=== PATIENT | male | born 1960 | race Caucasian/White ===

== ENCOUNTER 2017-04-07 23:36 | Emergency (ER) | payer MEDICAID ==
[~2017-04-07] VITALS: Ht 167.6 cm; Wt 99.8 kg
[~2017-04-07 23:36] MED LIST: ENAL20TA PO; GLIM1TAB PO; LOSA100T11 PO; MORP30TA2 PO; NIFE-2 PO
[2017-04-07 23:40] VITALS: BP_SYST 193
[2017-04-08] MEDS ORDERED: MORPHINE SULFATE 10 MG/ML VIAL IM ONE
[2017-04-08] MEDS ORDERED: HYDROmorphone 1 MG INJ. 1 MG/ML AMPUL IM ONE (02:15)
[2017-04-08 03:13] VITALS: BP_SYST 185
== END 2017-04-08 03:13 | disposition home or self-care (01) ==
LOC: SED 23:36
DX: M10.9 Gout, unspecified (principal); M79.672 Pain in left foot; J44.9 Chronic obstructive pulmonary disease, unspecified; E11.9 Type 2 diabetes mellitus without complications; I10 Essential (primary) hypertension; Z96.641 Presence of right artificial hip joint; Z86.19 Personal history of other infectious and parasitic diseases; Z91.011 Allergy to milk products
CPT/HCPCS: 96372; 99284; J1170; J2270

== ENCOUNTER 2018-07-29 16:32 | Emergency (ER) | payer MEDICAID ==
[~2018-07-29] VITALS: Ht 167.6 cm; Wt 108.9 kg
[~2018-07-29 16:32] MED LIST changes: +ALBMDI INH; +AZIT500T2 PO; +CAT.2 PO; -LOSA100T11 PO; +METO-442 PO; -MORP30TA2 PO
[2018-07-29 16:35] VITALS: BP_SYST 232
--- NOTE | 2018-07-29 16:40 | NUR ---
Patient to ER bed 3 to gown for evaluation. Side rails up.
--- NOTE | 2018-07-29 16:42 | NUR ---
Patient arrived via ACLS for c/c of ALOC. Patient unable to verbalize history, medications. Per EMS, patient was confused and alerted, was not making sense when speaking. Patient arrived AAOx2, patient knows he is in the hospital and knows his name. Patient hypertensive en route and upon arrival 232/112. Patient has periods of tearfulness. He keep stating, "I feel fine, I just want to go home!"
[2018-07-29 17:01] LABS: BASOPHILS % (AUTO) 0.6 % (0.0-2.0); EOSINOPHILS # (AUTO) 0.1 K/uL (0.0-0.4); EOSINOPHILS % (AUTO) 2.2 % (0.0-4.0); HEMATOCRIT 36.7 % (36-54); HEMOGLOBIN 11.9 g/dL (14.0-18.0); LYMPHOCYTES # (AUTO) 1.1 K/uL (1.0-5.5); LYMPHOCYTES % (AUTO) 16.6 % (20.5-51.5); MEAN CORPUSCULAR HEMOGLOBIN 29 pg (27-31); MEAN CORPUSCULAR HGB CONC 33 % (32-36); MEAN CORPUSCULAR VOLUME 90 fL (79.0-98.0); MONOCYTES # (AUTO) 0.4 K/uL (0.0-1.0); MONOCYTES % (AUTO) 5.9 % (1.7-9.3); NEUTROPHILS # (AUTO) 4.9 K/uL (1.8-7.7); NEUTROPHILS % (AUTO) 74.7 % (40.0-70.0); PLATELET COUNT (AUTO) 143 K/uL (130-430); RED BLOOD CELL COUNT(AUTO) 4.08 MIL/uL (4.2-6.2); RED CELL DISTRIBUTION WIDTH 14.4 % (9.0-15.0); WHITE BLOOD COUNT (AUTO) 6.5 K/uL (4.8-10.8)
[2018-07-29 17:22] LABS: CALCIUM 9.5 mg/dL (8.4-11.0); CREATININE 4.96 mg/dL (0.55-1.30); POTASSIUM 5.4 mmol/L (3.5-5.1)
--- NOTE | 2018-07-29 17:22 | NUR ---
Patient taken to CT scan via gurney. Patient hypertensive at 225/129, MD aware.
[2018-07-29 17:27] LABS: ALBUMIN 4.1 g/dL (3.4-4.8); TOTAL BILIRUBIN 0.6 mg/dL (0.0-1.0)
--- NOTE | 2018-07-29 17:28 | NUR ---
Patient arrived back from CT scan.
[2018-07-29 17:30] LABS: INR 1.1 (0.80-1.20); PROTHROMBIN TIME 10.7 SECS (9.5-12.5)
--- NOTE | 2018-07-29 17:32 | NUR ---
Received results from Julio Cesar in lab. Patient troponin, 0.076, MD informed.
[2018-07-29] MEDS ORDERED: SODIUM POLYSTYRENE SULFONATE 15 GM/60 ML UDBTL PO ONE (18:00)
--- NOTE | 2018-07-29 18:04 | NUR ---
Patient refusing IV access. aware.
--- NOTE | 2018-07-29 18:09 | NUR ---
Pt refuses Kayexalate. Dr. Do notified.
--- NOTE | 2018-07-29 18:10 | NUR ---
Dr. Do at bedside discussing results of tests with patient and his at bedside. Patient made aware of risks of leaving, as patient was adament about going home, even as far as and cardiac arrest. Patient verbalized understanding, and wants to sign AMA.
[2018-07-29] MEDS ORDERED: SODIUM POLYSTYRENE SULFONATE 15 GM/60 ML UDBTL ONE (18:13)
--- NOTE | 2018-07-29 18:25 | NUR ---
Patient does not wish to proceed with medical care recommended by Dr. Do. Patient given information related to possible complications, up to and including , which could occur as a result of leaving hospital at this time. Patient verbalizes understanding of risks involved leaving against medical advice. Patient has signed AMA form.
== END 2018-07-29 18:25 | disposition left against medical advice (07) ==
LOC: SED 16:32
DX: N28.9 Disorder of kidney and ureter, unspecified (principal); E87.5 Hyperkalemia; I24.9 Acute ischemic heart disease, unspecified; R79.89 Other specified abnormal findings of blood chemistry; J45.909 Unspecified asthma, uncomplicated; E11.9 Type 2 diabetes mellitus without complications; I10 Essential (primary) hypertension; Z86.79 Personal history of other diseases of the circulatory system; Z86.19 Personal history of other infectious and parasitic diseases; Z91.011 Allergy to milk products; Z79.899 Other long term (current) drug therapy
CPT/HCPCS: 36415; 70450-TC; 71045; 80053; 82550-TC; 83880; 84484; 85025; 85610-TC; 85730-TC; 93005; 99285

== ENCOUNTER 2018-10-07 23:04 | Inpatient (IN) | payer MEDICAID ==
[~2018-10-07] VITALS: Ht 167.6 cm; Wt 93.0 kg
[2018-10-07 23:08] VITALS: BP_SYST 227
[2018-10-08] VITALS (23 sets, daily range): BP systolic 135–195
[2018-10-08] MEDS ORDERED: cloNIDine HCL 0.1 MG TABLET PO ONE (00:15)
[2018-10-08 00:32] LABS: BASOPHILS % (AUTO) 0.5 % (0.0-2.0); EOSINOPHILS # (AUTO) 0.2 K/uL (0.0-0.4); EOSINOPHILS % (AUTO) 3.4 % (0.0-4.0); HEMATOCRIT 35.3 % (36-54); HEMOGLOBIN 11.9 g/dL (14.0-18.0); LYMPHOCYTES % (AUTO) 14.1 % (20.5-51.5); MEAN CORPUSCULAR HEMOGLOBIN 29 pg (27-31); MEAN CORPUSCULAR HGB CONC 34 % (32-36); MEAN CORPUSCULAR VOLUME 87 fL (79.0-98.0); MONOCYTES # (AUTO) 0.3 K/uL (0.0-1.0); MONOCYTES % (AUTO) 4.8 % (1.7-9.3); NEUTROPHILS # (AUTO) 5.6 K/uL (1.8-7.7); NEUTROPHILS % (AUTO) 77.2 % (40.0-70.0); PLATELET COUNT (AUTO) 139 K/uL (130-430); RED BLOOD CELL COUNT(AUTO) 4.05 MIL/uL (4.2-6.2); WHITE BLOOD COUNT (AUTO) 7.1 K/uL (4.8-10.8)
[2018-10-08] MEDS ORDERED: hydrALAZINE HCL 20 MG/ML VIAL IVP ONE (00:45)
[2018-10-08 00:48] LABS: PROTHROMBIN TIME 10.1 SECS (9.5-12.5)
[2018-10-08] MEDS ORDERED: NITROGLYCERIN 250 ML IV ONE (01:15)
[2018-10-08 01:47] LABS: CALCIUM 8.6 mg/dL (8.4-11.0); CREATININE 4.76 mg/dL (0.55-1.30); POTASSIUM 4.5 mmol/L (3.5-5.1)
[2018-10-08 01:52] LABS: ALBUMIN 3.4 g/dL (3.4-4.8); TOTAL BILIRUBIN 0.5 mg/dL (0.0-1.0)
[2018-10-08 01:56] LABS: BILIRUBIN,URINE NEGATIVE (NEGATIVE); CLARITY/URINE CLEAR (CLEAR); COLOR,URINE YELLOW (YELLOW); GLUCOSE,URINE NEGATIVE (NEGATIVE); KETONES,URINE NEGATIVE (NEGATIVE); LEUKOCYTE ESTERASE ,URINE NEGATIVE (NEGATIVE); NITRITE, URINE NEGATIVE (NEGATIVE); PH,URINE 6.5 (5.0-8.0); PROTEIN URINE 3+ (NEGATIVE); UROBILINOGEN,URINE 0.2 (0.2-1.0)
[2018-10-08 01:58] LABS: BLOOD, URINE TRACE (NEGATIVE)
[2018-10-08 02:08] LABS: BACTERIA,URINE RARE /HPF (None Seen); WBC,URINE 0-3 /HPF (0-3)
[2018-10-08] MEDS ORDERED: amLODIPine BESYLATE 10 MG TABLET PO ONE (02:15)
[2018-10-08] MEDS: amLODIPine BESYLATE 10 MG TABLET PO SCH (09:17)
[2018-10-08] MEDS ORDERED: METOPROLOL TARTRATE 50 MG TABLET PO ONE (11:00)
[2018-10-08] MEDS ORDERED: ENALAPRIL MALEATE 10 MG TABLET (VASOTEC) PO ONE (11:00)
[2018-10-08] MEDS ORDERED: FUROSEMIDE 40 MG/4 ML VIAL IVP ONE (11:15)
[2018-10-08 14:03] LABS: BILIRUBIN,URINE NEGATIVE (NEGATIVE); CLARITY/URINE CLEAR (CLEAR); COLOR,URINE YELLOW (YELLOW); GLUCOSE,URINE TRACE (NEGATIVE); KETONES,URINE NEGATIVE (NEGATIVE); LEUKOCYTE ESTERASE ,URINE NEGATIVE (NEGATIVE); NITRITE, URINE NEGATIVE (NEGATIVE); PROTEIN URINE 3+ (NEGATIVE); UROBILINOGEN,URINE 0.2 (0.2-1.0)
[2018-10-08 14:06] LABS: BLOOD, URINE TRACE (NEGATIVE)
[2018-10-08 14:22] LABS: BARBITURATE, URINE NEGATIVE (NEG <=200); BENZODIAZEPINE, URINE NEGATIVE (NEG <=150); CANNABINOID, URINE POSITIVE (NEG <=50); COCAINE, URINE NEGATIVE (NEG <=150); METHAMPHETAMINES SCREEN,URINE POSITIVE (NEG <=500); OPIATE, URINE NEGATIVE (NEG <=100); PHENCYCLIDINE SCREEN,URINE NEGATIVE (NEG <=25); UR TRICYCLIC ANTIDEPRESSANTS NEGATIVE (NEG <=300); URINE AMPHETAMINE POSITIVE (NEG <=500); URINE METHADONE NEGATIVE (NEG <=200); URINE OXYCODONE SCREEN NEGATIVE (NEG <=100); URINE PROPOXYPHENE SCREEN NEGATIVE (NEG <=300)
[2018-10-08] MEDS ORDERED: NITROGLYCERIN 250 ML IV PRN (15:00)
[2018-10-08] MEDS ORDERED: ATORVASTATIN 20 MG TABLET PO ONE (15:15)
[2018-10-08] MEDS ORDERED: ASPIRIN 81 MG TAB.CHEW PO ONE (15:15)
[2018-10-08 17:41] LABS: BACTERIA,URINE FEW /HPF (None Seen); FINE GRANULAR CASTS,URINE 0-10 /LPF (None Seen); MUCUS,URINE 1+ /LPF (None Seen); RBC,URINE 0-3 /HPF (0-3); WBC,URINE 0-3 /HPF (0-3)
[2018-10-08] MEDS: cloNIDine HCL 0.1 MG TABLET PO PRN (18:43)
[2018-10-08 19:34] LABS: URINE SODIUM, RANDOM 55 mmol/L (40-220)
[2018-10-08] MEDS: ENALAPRIL MALEATE 10 MG TABLET (VASOTEC) PO SCH (21:58)
[2018-10-08] MEDS: cloNIDine HCL 0.2 MG TABLET PO SCH (21:59)
[2018-10-08] MEDS: METOPROLOL TARTRATE 50 MG TABLET PO SCH (21:59)
[2018-10-09] VITALS (24 sets, daily range): BP systolic 122–171
[2018-10-09] MEDS: cloNIDine HCL 0.1 MG TABLET PO PRN ×2 (03:20→17:33)
[2018-10-09] MEDS: cloNIDine HCL 0.2 MG TABLET PO SCH ×2 (08:24→21:17)
[2018-10-09] MEDS: ASPIRIN 81 MG TAB.CHEW PO SCH (08:25)
[2018-10-09] MEDS: METOPROLOL TARTRATE 50 MG TABLET PO SCH ×2 (08:25→21:16)
[2018-10-09] MEDS: amLODIPine BESYLATE 10 MG TABLET PO SCH (08:25)
[2018-10-09] MEDS: ATORVASTATIN 20 MG TABLET PO SCH (08:26)
[2018-10-09] MEDS: ENALAPRIL MALEATE 10 MG TABLET (VASOTEC) PO SCH ×2 (08:26→21:16)
[2018-10-09] MEDS: FUROSEMIDE 40 MG/4 ML VIAL IVP SCH (08:27)
[2018-10-09 10:35] LABS: BASOPHILS # (AUTO) 0.1 K/uL (0.0-0.2); BASOPHILS % (AUTO) 0.6 % (0.0-2.0); EOSINOPHILS # (AUTO) 0.2 K/uL (0.0-0.4); EOSINOPHILS % (AUTO) 2.5 % (0.0-4.0); HEMATOCRIT 30.5 % (36-54); HEMOGLOBIN 10.1 g/dL (14.0-18.0); LYMPHOCYTES # (AUTO) 1.4 K/uL (1.0-5.5); LYMPHOCYTES % (AUTO) 15.4 % (20.5-51.5); MEAN CORPUSCULAR HEMOGLOBIN 29 pg (27-31); MEAN CORPUSCULAR HGB CONC 33 % (32-36); MEAN CORPUSCULAR VOLUME 88 fL (79.0-98.0); MONOCYTES # (AUTO) 0.7 K/uL (0.0-1.0); MONOCYTES % (AUTO) 7.9 % (1.7-9.3); NEUTROPHILS # (AUTO) 6.4 K/uL (1.8-7.7); NEUTROPHILS % (AUTO) 73.6 % (40.0-70.0); PLATELET COUNT (AUTO) 153 K/uL (130-430); RED BLOOD CELL COUNT(AUTO) 3.45 MIL/uL (4.2-6.2); RED CELL DISTRIBUTION WIDTH 12.9 % (9.0-15.0); WHITE BLOOD COUNT (AUTO) 8.8 K/uL (4.8-10.8)
[2018-10-09 10:41] LABS: CALCIUM 8.7 mg/dL (8.4-11.0); CREATININE 5.31 mg/dL (0.55-1.30); POTASSIUM 4.4 mmol/L (3.5-5.1)
[2018-10-09 10:45] LABS: ALBUMIN 2.9 g/dL (3.4-4.8); TOTAL BILIRUBIN 0.5 mg/dL (0.0-1.0)
[2018-10-09] MEDS ORDERED: hydrALAZINE HCL 25 MG TABLET PO ONE (11:45)
[2018-10-09] MEDS: INSULIN REGULAR, HUMAN 100 UNITS/ML, 10 ML VIAL (novoLIN R) SUBCUT PRN (12:21)
[2018-10-09] MEDS ORDERED: HEPARIN SODIUM,PORCINE 5000 UNITS/ML VIAL ONE (20:20)
[2018-10-09 20:27] LABS: CALCIUM 8.3 mg/dL (8.4-11.0); PHOSPHORUS 4.5 mg/dL (2.7-4.5)
[2018-10-09] MEDS ORDERED: HEPARIN SODIUM, PORCINE 10,000 UNITS/ 10 ML VIAL MC ONE (21:00)
[2018-10-09] MEDS: hydrALAZINE HCL 25 MG TABLET PO SCH (21:17)
[2018-10-09] MEDS: TEMAZEPAM 15 MG CAPSULE PO PRN (22:26)
[2018-10-10] VITALS (17 sets, daily range): BP systolic 131–178
[2018-10-10] MEDS: ENALAPRIL MALEATE 10 MG TABLET (VASOTEC) PO SCH ×3 (09:00→20:45)
[2018-10-10] MEDS: hydrALAZINE HCL 25 MG TABLET PO SCH ×3 (09:00→20:43)
[2018-10-10] MEDS: cloNIDine HCL 0.2 MG TABLET PO SCH ×3 (09:00→20:44)
[2018-10-10] MEDS: METOPROLOL TARTRATE 50 MG TABLET PO SCH ×3 (09:00→20:44)
[2018-10-10] MEDS: amLODIPine BESYLATE 10 MG TABLET PO SCH ×2 (09:00→09:07)
[2018-10-10] MEDS: FUROSEMIDE 40 MG/4 ML VIAL IVP SCH (09:05)
[2018-10-10] MEDS: ATORVASTATIN 20 MG TABLET PO SCH (09:08)
[2018-10-10] MEDS: ASPIRIN 81 MG TAB.CHEW PO SCH (09:08)
[2018-10-10] MEDS: INSULIN REGULAR, HUMAN 100 UNITS/ML, 10 ML VIAL (novoLIN R) SUBCUT PRN ×2 (11:38→17:43)
[2018-10-10] MEDS: cloNIDine HCL 0.1 MG TABLET PO PRN (12:52)
[2018-10-10] MEDS ORDERED: NEPHROVITE, (FOLIC ACID/VITAMIN B COMP W-C 1 TAB) PO ONE (17:30)
[2018-10-10] MEDS: TEMAZEPAM 15 MG CAPSULE PO PRN (22:36)
[2018-10-11] VITALS (7 sets, daily range): BP systolic 105–169
[2018-10-11 07:30] LABS: CALCIUM 8.6 mg/dL (8.4-11.0); CREATININE 4.82 mg/dL (0.55-1.30); POTASSIUM 4.3 mmol/L (3.5-5.1)
[2018-10-11] MEDS: NEPHROVITE, (FOLIC ACID/VITAMIN B COMP W-C 1 TAB) PO SCH (08:21)
[2018-10-11] MEDS: ASPIRIN 81 MG TAB.CHEW PO SCH (08:21)
[2018-10-11] MEDS: ATORVASTATIN 20 MG TABLET PO SCH (08:21)
[2018-10-11] MEDS: FUROSEMIDE 40 MG/4 ML VIAL IVP SCH (08:21)
[2018-10-11] MEDS: cloNIDine HCL 0.2 MG TABLET PO SCH ×3 (08:22→20:25)
[2018-10-11] MEDS: hydrALAZINE HCL 25 MG TABLET PO SCH ×2 (08:33→20:25)
[2018-10-11] MEDS: amLODIPine BESYLATE 10 MG TABLET PO SCH (08:34)
[2018-10-11] MEDS: ENALAPRIL MALEATE 10 MG TABLET (VASOTEC) PO SCH ×2 (08:34→20:26)
[2018-10-11] MEDS: METOPROLOL TARTRATE 50 MG TABLET PO SCH ×2 (08:34→20:24)
[2018-10-11 13:10] LABS: HEPATITIS B CORE AB, IgM Negative (Negative); HEPATITIS B SURFACE AG Negative (Negative)
[2018-10-11] MEDS ORDERED: HEPARIN SODIUM, PORCINE 10,000 UNITS/ 10 ML VIAL MC ONE (14:00)
[2018-10-11] MEDS ORDERED: ONDANSETRON HCL 4 MG/2 ML VIAL IVP PRN (16:15)
[2018-10-11] MEDS: HYDROcodone/ACETAMIN 5-325 MG TAB (NORCO/ VICODIN) PO PRN ×2 (16:26→22:40)
[2018-10-11] MEDS: TEMAZEPAM 15 MG CAPSULE PO PRN (21:47)
[2018-10-12] MEDS: HYDROcodone/ACETAMIN 5-325 MG TAB (NORCO/ VICODIN) PO PRN (04:29)
[2018-10-12 07:52] VITALS: BP_SYST 109
[2018-10-12 08:00] VITALS: BP_SYST 109
[2018-10-12] MEDS: ENALAPRIL MALEATE 10 MG TABLET (VASOTEC) PO SCH (08:46)
[2018-10-12] MEDS: cloNIDine HCL 0.2 MG TABLET PO SCH (08:46)
[2018-10-12] MEDS: ASPIRIN 81 MG TAB.CHEW PO SCH (08:56)
[2018-10-12] MEDS: hydrALAZINE HCL 25 MG TABLET PO SCH (08:56)
[2018-10-12] MEDS: FUROSEMIDE 40 MG/4 ML VIAL IVP SCH (08:56)
[2018-10-12] MEDS: NEPHROVITE, (FOLIC ACID/VITAMIN B COMP W-C 1 TAB) PO SCH (08:56)
[2018-10-12] MEDS: ATORVASTATIN 20 MG TABLET PO SCH (08:56)
[2018-10-12] MEDS: METOPROLOL TARTRATE 50 MG TABLET PO SCH (08:56)
[2018-10-12] MEDS: amLODIPine BESYLATE 10 MG TABLET PO SCH (08:56)
[2018-10-12 09:41] VITALS: BP_SYST 109
[2018-10-12 11:05] LABS: HEPATITIS A AB, IgM Negative (Negative)
[2018-10-12 11:07] LABS: HEPATITIS C VIRUS AB >11.0 s/co (0.0-0.7)
== END 2018-10-12 10:44 | disposition left against medical advice (07) | DRG 194 ==
LOC: SED 23:04 → SIC 10-08 02:33 → STU 10-10 14:45
PROVIDERS: ADMIT Internal Medicine Hospice and Palliative Medicine; ATTEND Internal Medicine Hospice and Palliative Medicine
PROC: 02HV33Z Insertion of Infusion Device into Superior Vena Cava, Percutaneous Approach (ICD-10-PCS; principal; 2018-10-09)
PROC: 5A1D70Z Performance of Urinary Filtration, Intermittent, Less than 6 Hours Per Day (ICD-10-PCS; 2018-10-10)
PROC: 5A1D70Z Performance of Urinary Filtration, Intermittent, Less than 6 Hours Per Day (ICD-10-PCS; 2018-10-11)
DX: I13.2 Hypertensive heart and chronic kidney disease with heart failure and with stage 5 chronic kidney disease, or end stage renal disease (principal); N17.9 Acute kidney failure, unspecified; E11.21 Type 2 diabetes mellitus with diabetic nephropathy; E66.01 Morbid (severe) obesity due to excess calories; M86.9 Osteomyelitis, unspecified; N18.6 End stage renal disease; I24.8 Other forms of acute ischemic heart disease; I16.1 Hypertensive emergency; I50.9 Heart failure, unspecified; E11.22 Type 2 diabetes mellitus with diabetic chronic kidney disease; E78.5 Hyperlipidemia, unspecified; F15.10 Other stimulant abuse, uncomplicated; J45.909 Unspecified asthma, uncomplicated; Z96.649 Presence of unspecified artificial hip joint; B19.20 Unspecified viral hepatitis C without hepatic coma; D63.1 Anemia in chronic kidney disease; Z91.048 Other nonmedicinal substance allergy status; Z91.14 Patient's other noncompliance with medication regimen; Z79.899 Other long term (current) drug therapy; Z68.33 Body mass index [BMI] 33.0-33.9, adult
CPT/HCPCS: 36415; 36600; 71045; 71250-TC; 80048; 80053; 80307; 81000-TC; 82310-TC; 82570-TC; 82803-TC; 82962; 83605; 83880; 83970; 84100-TC; 84302-TC; 84484; 85025; 85610-TC; 85730-TC; 86705; 86709; 86803; 87040-TC; 87081; 87086; 87340; 90935; 90937; 93005; 93306; 96374; 99285; C1751; G0378; J0360; J1644; J1815; J1940; J2405; J3490; J7030

== ENCOUNTER 2018-10-12 16:13 | Emergency (ER) | payer MEDICAID ==
[~2018-10-12] VITALS: Ht 167.6 cm; Wt 90.7 kg
[2018-10-12 16:24] VITALS: BP_SYST 163
[2018-10-12 16:53] VITALS: BP_SYST 163
== END 2018-10-12 16:53 | disposition home or self-care (01) ==
LOC: SED 16:13
DX: L76.22 Postprocedural hemorrhage of skin and subcutaneous tissue following other procedure (principal); J45.909 Unspecified asthma, uncomplicated; E11.9 Type 2 diabetes mellitus without complications; I10 Essential (primary) hypertension; Z86.79 Personal history of other diseases of the circulatory system; Z86.19 Personal history of other infectious and parasitic diseases; Z91.011 Allergy to milk products; Z79.899 Other long term (current) drug therapy
CPT/HCPCS: 99282

== ENCOUNTER 2018-10-26 09:44 | Inpatient (IN) | payer MEDICAID ==
[~2018-10-26] VITALS: Ht 167.6 cm; Wt 91.6 kg
[2018-10-26 09:44] VITALS: BP_SYST 127
[~2018-10-26 09:44] MED LIST changes: -AZIT500T2 PO; -GLIM1TAB PO; -NIFE-2 PO
[2018-10-26 11:29] LABS: BASOPHILS % (AUTO) 0.2 % (0.0-2.0); HEMATOCRIT 33.8 % (36-54); HEMOGLOBIN 11.3 g/dL (14.0-18.0); LYMPHOCYTES # (AUTO) 0.7 K/uL (1.0-5.5); LYMPHOCYTES % (AUTO) 3.8 % (20.5-51.5); MEAN CORPUSCULAR HEMOGLOBIN 29 pg (27-31); MEAN CORPUSCULAR HGB CONC 34 % (32-36); MEAN CORPUSCULAR VOLUME 87 fL (79.0-98.0); MONOCYTES # (AUTO) 1.1 K/uL (0.0-1.0); MONOCYTES % (AUTO) 6.4 % (1.7-9.3); NEUTROPHILS # (AUTO) 15.4 K/uL (1.8-7.7); NEUTROPHILS % (AUTO) 89.6 % (40.0-70.0); PLATELET COUNT (AUTO) 113 K/uL (130-430); RED BLOOD CELL COUNT(AUTO) 3.87 MIL/uL (4.2-6.2); RED CELL DISTRIBUTION WIDTH 12.5 % (9.0-15.0); WHITE BLOOD COUNT (AUTO) 17.2 K/uL (4.8-10.8)
[2018-10-26 11:35] LABS: INR 1.1 (0.80-1.20); PROTHROMBIN TIME 10.9 SECS (9.5-12.5)
[2018-10-26 11:40] LABS: ALBUMIN 3.1 g/dL (3.4-4.8); CALCIUM 8.6 mg/dL (8.4-11.0); POTASSIUM 5.2 mmol/L (3.5-5.1)
[2018-10-26 11:54] LABS: CREATININE 9.53 mg/dL (0.55-1.30)
[2018-10-26 12:04] LABS: TOTAL BILIRUBIN 0.6 mg/dL (0.0-1.0)
[2018-10-26] MEDS ORDERED: HYDR-4038 PO (13:09)
[2018-10-26] MEDS ORDERED: CALC667T5 PO (13:09)
[2018-10-26] MEDS ORDERED: METO-442 PO (13:09)
[2018-10-26] MEDS ORDERED: LIP40 PO (13:09)
[2018-10-26] MEDS ORDERED: NOR10 PO (13:09)
[2018-10-26] MEDS ORDERED: ASPI-1153 PO (13:09)
[2018-10-26] MEDS ORDERED: CHOL500037 PO (13:09)
[2018-10-26] MEDS ORDERED: CAT.2 PO (13:09)
[2018-10-26 13:10] LABS: BILIRUBIN,URINE NEGATIVE (NEGATIVE); BLOOD, URINE NEGATIVE (NEGATIVE); CLARITY/URINE CLEAR (CLEAR); COLOR,URINE YELLOW (YELLOW); GLUCOSE,URINE NEGATIVE (NEGATIVE); KETONES,URINE NEGATIVE (NEGATIVE); LEUKOCYTE ESTERASE ,URINE NEGATIVE (NEGATIVE); NITRITE, URINE NEGATIVE (NEGATIVE); PH,URINE 5.5 (5.0-8.0); PROTEIN URINE 2+ (NEGATIVE); UROBILINOGEN,URINE 0.2 (0.2-1.0)
[2018-10-26] MEDS ORDERED: PIPERACILLIN/TAZO 3.375 GM in NS 50 ML IV ONE (13:15)
[2018-10-26] MEDS ORDERED: SODIUM POLYSTYRENE SULFONATE 15 GM/60 ML UDBTL PO ONE (13:15)
[2018-10-26 13:23] LABS: RBC,URINE 0-3 /HPF (0-3)
[2018-10-26 13:24] LABS: BACTERIA,URINE FEW /HPF (None Seen); MUCUS,URINE None Seen /LPF (None Seen); WBC,URINE 0-3 /HPF (0-3)
[2018-10-26] MEDS ORDERED: D5W 1,000 ML IV PRN (15:15)
[2018-10-26] MEDS ORDERED: GLUCOSE 15 GM GEL (in 37.5 GM TUBE) PO PRN (15:15)
[2018-10-26] MEDS ORDERED: DEXTROSE 50%-WATER 50 ML DISP.SYRIN IVP PRN (15:15)
[2018-10-26 15:31] VITALS: BP_SYST 137
[2018-10-26] MEDS: HYDROcodone/ACETAMIN 5-325 MG TAB (NORCO/ VICODIN) PO PRN (16:24)
[2018-10-26 16:45] VITALS: BP_SYST 125
[2018-10-26] MEDS: INSULIN ASPART 100 UNITS/ML, 10 ML VIAL (NovoLOG) SUBCUT PRN (18:39)
[2018-10-26] MEDS: LEVOFLOXACIN 500 MG/D5W 100 ML IV ONE (18:55)
[2018-10-26 20:00] VITALS: BP_SYST 135
[2018-10-26] MEDS: ENALAPRIL MALEATE 10 MG TABLET (VASOTEC) PO SCH ×2 (21:00→23:26)
[2018-10-26] MEDS: cloNIDine HCL 0.2 MG TABLET PO SCH ×2 (21:00→23:25)
[2018-10-26] MEDS: hydrALAZINE HCL 25 MG TABLET PO SCH ×2 (21:00→23:26)
[2018-10-26] MEDS: METOPROLOL TARTRATE 50 MG TABLET PO SCH ×2 (21:00→23:25)
[2018-10-26] MEDS: metroNIDAZOLE 500 MG TABLET PO SCH (21:25)
[2018-10-26] MEDS: ONDANSETRON HCL 4 MG/2 ML VIAL IVP PRN (22:30)
[2018-10-26] MEDS ORDERED: HEPARIN SODIUM,PORCINE 5000 UNITS/ML VIAL MC ONE (23:45)
[2018-10-27 00:54] VITALS: BP_SYST 139
[2018-10-27] MEDS: LEVOFLOXACIN 500 MG/D5W 100 ML IV ONE (01:46)
[2018-10-27] MEDS: HYDROcodone/ACETAMIN 5-325 MG TAB (NORCO/ VICODIN) PO PRN ×4 (01:47→21:52)
[2018-10-27] MEDS ORDERED: VANCOMYCIN HCL 1000 MG/VIAL IV ONE (02:38)
[2018-10-27] MEDS: ACETAMINOPHEN 325 MG TABLET PO PRN ×2 (02:52→12:10)
[2018-10-27] MEDS ORDERED: VANCOMYCIN HCL 1 GM/NS PREMIX 250 ML IV ONE (03:00)
[2018-10-27 04:24] VITALS: BP_SYST 145
[2018-10-27 06:57] LABS: BASOPHILS % (AUTO) 0.1 % (0.0-2.0); HEMATOCRIT 28.4 % (36-54); HEMOGLOBIN 9.6 g/dL (14.0-18.0); LYMPHOCYTES # (AUTO) 0.4 K/uL (1.0-5.5); LYMPHOCYTES % (AUTO) 4.7 % (20.5-51.5); MEAN CORPUSCULAR HEMOGLOBIN 29 pg (27-31); MEAN CORPUSCULAR HGB CONC 34 % (32-36); MEAN CORPUSCULAR VOLUME 87 fL (79.0-98.0); MONOCYTES # (AUTO) 0.9 K/uL (0.0-1.0); MONOCYTES % (AUTO) 10.9 % (1.7-9.3); NEUTROPHILS # (AUTO) 7.1 K/uL (1.8-7.7); NEUTROPHILS % (AUTO) 84.3 % (40.0-70.0); RED BLOOD CELL COUNT(AUTO) 3.28 MIL/uL (4.2-6.2); RED CELL DISTRIBUTION WIDTH 12.5 % (9.0-15.0); WHITE BLOOD COUNT (AUTO) 8.4 K/uL (4.8-10.8)
[2018-10-27 07:10] LABS: ALBUMIN 2.5 g/dL (3.4-4.8); BILIRUBIN,DIRECT 0.2 mg/dL (0.0-0.3); CALCIUM 7.8 mg/dL (8.4-11.0); CREATININE 5.99 mg/dL (0.55-1.30); POTASSIUM 4.9 mmol/L (3.5-5.1); TOTAL BILIRUBIN 0.6 mg/dL (0.0-1.0)
[2018-10-27 07:56] VITALS: BP_SYST 125
[2018-10-27] MEDS: metroNIDAZOLE 500 MG TABLET PO SCH ×2 (08:40→20:33)
[2018-10-27] MEDS: ASPIRIN 81 MG TABLET(ECOTRIN) PO SCH (08:40)
[2018-10-27] MEDS: ATORVASTATIN 20 MG TABLET PO SCH (08:40)
[2018-10-27] MEDS: ENALAPRIL MALEATE 10 MG TABLET (VASOTEC) PO SCH ×2 (08:41→20:33)
[2018-10-27] MEDS: METOPROLOL TARTRATE 50 MG TABLET PO SCH ×2 (08:41→20:35)
[2018-10-27] MEDS: cloNIDine HCL 0.2 MG TABLET PO SCH ×2 (08:42→20:34)
[2018-10-27] MEDS: FAMOTIDINE 20 MG TABLET PO SCH (08:42)
[2018-10-27] MEDS: amLODIPine BESYLATE 10 MG TABLET PO SCH (08:42)
[2018-10-27] MEDS: hydrALAZINE HCL 25 MG TABLET PO SCH ×2 (08:43→20:34)
[2018-10-27 08:57] LABS: PLATELET COUNT (AUTO) 82 K/uL (130-430)
[2018-10-27 12:16] VITALS: BP_SYST 114
[2018-10-27] MEDS: INSULIN ASPART 100 UNITS/ML, 10 ML VIAL (NovoLOG) SUBCUT PRN ×3 (12:16→20:38)
[2018-10-27 16:32] VITALS: BP_SYST 96
[2018-10-28 00:45] VITALS: BP_SYST 128
[2018-10-28] MEDS: HYDROcodone/ACETAMIN 5-325 MG TAB (NORCO/ VICODIN) PO PRN (07:49)
[2018-10-28 08:00] VITALS: BP_SYST 145
[2018-10-28] MEDS: LEVOFLOXACIN 500 MG/D5W 100 ML IV SCH (08:39)
[2018-10-28] MEDS: ASPIRIN 81 MG TABLET(ECOTRIN) PO SCH (08:40)
[2018-10-28] MEDS: ATORVASTATIN 20 MG TABLET PO SCH (08:40)
[2018-10-28] MEDS: metroNIDAZOLE 500 MG TABLET PO SCH ×2 (08:40→20:48)
[2018-10-28] MEDS: FAMOTIDINE 20 MG TABLET PO SCH (08:40)
[2018-10-28] MEDS: ENALAPRIL MALEATE 10 MG TABLET (VASOTEC) PO SCH ×2 (12:01→20:49)
[2018-10-28] MEDS: hydrALAZINE HCL 25 MG TABLET PO SCH ×2 (12:01→20:53)
[2018-10-28] MEDS: METOPROLOL TARTRATE 50 MG TABLET PO SCH ×2 (12:02→20:50)
[2018-10-28] MEDS: amLODIPine BESYLATE 10 MG TABLET PO SCH (12:02)
[2018-10-28] MEDS: cloNIDine HCL 0.2 MG TABLET PO SCH ×2 (12:03→20:52)
[2018-10-28] MEDS ORDERED: HYDROcodone/ACETAMIN 7.5-325 MG TAB PO ONE (12:30)
[2018-10-28 13:13] VITALS: BP_SYST 130
[2018-10-28] MEDS ORDERED: *CUBICIN 6 MG/KG Q48H/PHARMACY XX PRN (14:30)
[2018-10-28 15:27] LABS: INR 1.1 (0.80-1.20); PROTHROMBIN TIME 11.1 SECS (9.5-12.5)
[2018-10-28 15:31] LABS: TOTAL IRON BIND. CAPACITY 179 ug/dL (250-450)
[2018-10-28] MEDS ORDERED: DAPTOmycin 500 MG in NS 50 ML IV SCH (17:00)
[2018-10-28] MEDS: INSULIN ASPART 100 UNITS/ML, 10 ML VIAL (NovoLOG) SUBCUT PRN ×2 (17:10→20:58)
[2018-10-28 17:12] VITALS: BP_SYST 112
[2018-10-29 00:40] VITALS: BP_SYST 126
[2018-10-29] MEDS: HYDROcodone/ACETAMIN 10-325 MG TAB PO PRN ×3 (05:38→20:51)
[2018-10-29] MEDS: INSULIN ASPART 100 UNITS/ML, 10 ML VIAL (NovoLOG) SUBCUT PRN ×4 (05:45→20:53)
[2018-10-29 08:09] VITALS: BP_SYST 116
[2018-10-29] MEDS: ATORVASTATIN 20 MG TABLET PO SCH (08:53)
[2018-10-29] MEDS: ASPIRIN 81 MG TABLET(ECOTRIN) PO SCH (08:53)
[2018-10-29] MEDS: metroNIDAZOLE 500 MG TABLET PO SCH ×2 (08:53→20:40)
[2018-10-29] MEDS: FAMOTIDINE 20 MG TABLET PO SCH (08:54)
[2018-10-29] MEDS: METOPROLOL TARTRATE 50 MG TABLET PO SCH ×2 (08:55→21:00)
[2018-10-29] MEDS: ENALAPRIL MALEATE 10 MG TABLET (VASOTEC) PO SCH ×2 (09:00→21:00)
[2018-10-29] MEDS: cloNIDine HCL 0.2 MG TABLET PO SCH ×2 (09:00→21:00)
[2018-10-29] MEDS: amLODIPine BESYLATE 10 MG TABLET PO SCH (11:46)
[2018-10-29] MEDS: hydrALAZINE HCL 25 MG TABLET PO SCH ×2 (11:47→21:00)
[2018-10-29 13:14] VITALS: BP_SYST 148
[2018-10-29] MEDS: ONDANSETRON HCL 4 MG/2 ML VIAL IVP PRN (15:05)
[2018-10-29 17:03] VITALS: BP_SYST 114
[2018-10-29 20:34] VITALS: BP_SYST 116
[2018-10-29 23:42] VITALS: BP_SYST 118
[2018-10-30] MEDS: HYDROcodone/ACETAMIN 10-325 MG TAB PO PRN ×3 (05:55→21:51)
[2018-10-30 08:04] LABS: CALCIUM 7.9 mg/dL (8.4-11.0); POTASSIUM 4.7 mmol/L (3.5-5.1)
[2018-10-30 08:12] LABS: BASOPHILS % (AUTO) 0.3 % (0.0-2.0); EOSINOPHILS # (AUTO) 0.1 K/uL (0.0-0.4); HEMATOCRIT 26.8 % (36-54); HEMOGLOBIN 8.7 g/dL (14.0-18.0); LYMPHOCYTES # (AUTO) 0.6 K/uL (1.0-5.5); LYMPHOCYTES % (AUTO) 10.6 % (20.5-51.5); MEAN CORPUSCULAR HEMOGLOBIN 29 pg (27-31); MEAN CORPUSCULAR HGB CONC 32 % (32-36); MEAN CORPUSCULAR VOLUME 90 fL (79.0-98.0); MONOCYTES # (AUTO) 0.8 K/uL (0.0-1.0); MONOCYTES % (AUTO) 13.1 % (1.7-9.3); NEUTROPHILS # (AUTO) 4.5 K/uL (1.8-7.7); RED BLOOD CELL COUNT(AUTO) 2.97 MIL/uL (4.2-6.2); RED CELL DISTRIBUTION WIDTH 13.1 % (9.0-15.0)
[2018-10-30 08:16] LABS: CREATININE 8.24 mg/dL (0.55-1.30)
[2018-10-30] MEDS: hydrALAZINE HCL 25 MG TABLET PO SCH ×2 (08:47→22:01)
[2018-10-30] MEDS: cloNIDine HCL 0.2 MG TABLET PO SCH ×2 (08:48→21:54)
[2018-10-30 08:49] VITALS: BP_SYST 137
[2018-10-30] MEDS: ASPIRIN 81 MG TABLET(ECOTRIN) PO SCH (08:49)
[2018-10-30] MEDS: ATORVASTATIN 20 MG TABLET PO SCH (08:49)
[2018-10-30] MEDS: metroNIDAZOLE 500 MG TABLET PO SCH ×2 (08:49→21:52)
[2018-10-30] MEDS: FAMOTIDINE 20 MG TABLET PO SCH (08:49)
[2018-10-30] MEDS: amLODIPine BESYLATE 10 MG TABLET PO SCH (08:50)
[2018-10-30] MEDS: METOPROLOL TARTRATE 50 MG TABLET PO SCH ×2 (08:50→21:54)
[2018-10-30] MEDS: ENALAPRIL MALEATE 10 MG TABLET (VASOTEC) PO SCH ×2 (08:51→21:52)
[2018-10-30 09:09] LABS: PLATELET COUNT (AUTO) 81 K/uL (130-430)
[2018-10-30] MEDS ORDERED: LIDOCAINE PF 1%, 20 MG/2 ML AMP INJ ONE (10:30)
[2018-10-30] MEDS: LEVOFLOXACIN 500 MG/D5W 100 ML IV SCH (12:08)
[2018-10-30] MEDS: INSULIN ASPART 100 UNITS/ML, 10 ML VIAL (NovoLOG) SUBCUT PRN ×3 (12:13→22:05)
[2018-10-30] MEDS ORDERED: ceFAZolin SODIUM 1 GM in D5W 50 ML IV ONE (12:30)
[2018-10-30 12:33] VITALS: BP_SYST 131
[2018-10-30 15:49] VITALS: BP_SYST 149
[2018-10-30 19:00] VITALS: BP_SYST 129
[2018-10-30 20:00] VITALS: BP_SYST 156
[2018-10-30] MEDS: ceFAZolin SODIUM 1 GM in D5W 50 ML IV SCH (22:00)
[2018-10-30] MEDS ORDERED: LIDOCAINE 1%, 20 ML MDV 0 ML ONE (22:25)
[2018-10-31 02:06] LABS: AFP, TUMOR MARKER 0.8 ng/mL (0.0-8.3)
[2018-10-31 02:12] VITALS: BP_SYST 121
[2018-10-31 07:50] LABS: TOTAL IRON BIND. CAPACITY 174 ug/dL (250-450)
[2018-10-31 08:00] VITALS: BP_SYST 143
[2018-10-31] MEDS: ceFAZolin SODIUM 1 GM in D5W 50 ML IV SCH ×2 (08:28→20:46)
[2018-10-31] MEDS: ENALAPRIL MALEATE 10 MG TABLET (VASOTEC) PO SCH ×2 (08:29→20:49)
[2018-10-31] MEDS: ATORVASTATIN 20 MG TABLET PO SCH (08:29)
[2018-10-31] MEDS: hydrALAZINE HCL 25 MG TABLET PO SCH ×2 (08:30→20:47)
[2018-10-31] MEDS: metroNIDAZOLE 500 MG TABLET PO SCH ×2 (08:30→20:49)
[2018-10-31] MEDS: ASPIRIN 81 MG TABLET(ECOTRIN) PO SCH (08:30)
[2018-10-31] MEDS: amLODIPine BESYLATE 10 MG TABLET PO SCH (08:30)
[2018-10-31] MEDS: METOPROLOL TARTRATE 50 MG TABLET PO SCH ×2 (08:31→20:48)
[2018-10-31] MEDS: cloNIDine HCL 0.2 MG TABLET PO SCH ×2 (08:31→20:48)
[2018-10-31] MEDS: FAMOTIDINE 20 MG TABLET PO SCH (08:31)
[2018-10-31 09:56] LABS: FERRITIN 652 ng/mL (30-400)
[2018-10-31 11:33] VITALS: BP_SYST 129
[2018-10-31] MEDS: SOD FERRIC GLUC COMPLEX/SUC 125 MG in NS 100 ML IV SCH (12:38)
[2018-10-31] MEDS: HYDROcodone/ACETAMIN 10-325 MG TAB PO PRN (12:49)
[2018-10-31 15:11] LABS: ATYPICAL pANCA <1:20 titer (Neg:<1:20); CYTOPLASMIC (C-ANCA) <1:20 titer (Neg:<1:20); CYTOPLASMIC (P-ANCA) <1:20 titer (Neg:<1:20)
[2018-10-31 16:02] VITALS: BP_SYST 126
[2018-10-31 19:00] VITALS: BP_SYST 127
[2018-10-31 20:00] VITALS: BP_SYST 127
[2018-10-31 20:15] LABS: ANTI NUCLEAR AB WITH REFLEX Negative (Negative)
[2018-11-01 00:24] VITALS: BP_SYST 131
[2018-11-01] MEDS: HYDROcodone/ACETAMIN 10-325 MG TAB PO PRN ×4 (02:54→22:44)
[2018-11-01 07:51] VITALS: BP_SYST 159
[2018-11-01] MEDS: ASPIRIN 81 MG TABLET(ECOTRIN) PO SCH (09:00)
[2018-11-01] MEDS: ENALAPRIL MALEATE 10 MG TABLET (VASOTEC) PO SCH ×2 (09:00→22:46)
[2018-11-01] MEDS: FAMOTIDINE 20 MG TABLET PO SCH (09:00)
[2018-11-01] MEDS: cloNIDine HCL 0.2 MG TABLET PO SCH ×2 (09:00→22:45)
[2018-11-01] MEDS: amLODIPine BESYLATE 10 MG TABLET PO SCH (09:00)
[2018-11-01] MEDS: hydrALAZINE HCL 25 MG TABLET PO SCH ×2 (09:00→22:45)
[2018-11-01] MEDS: METOPROLOL TARTRATE 50 MG TABLET PO SCH ×2 (09:00→22:44)
[2018-11-01] MEDS: ATORVASTATIN 20 MG TABLET PO SCH (09:00)
[2018-11-01] MEDS: metroNIDAZOLE 500 MG TABLET PO SCH ×2 (09:00→22:44)
[2018-11-01] MEDS: ceFAZolin SODIUM 1 GM in D5W 50 ML IV SCH ×2 (09:02→22:43)
[2018-11-01] MEDS ORDERED: HEPARIN SODIUM,PORCINE 5000 UNITS/ML VIAL IV ONE (10:00)
[2018-11-01 11:36] VITALS: BP_SYST 149
[2018-11-01 11:36] LABS: BASOPHILS % (AUTO) 0.4 % (0.0-2.0); EOSINOPHILS # (AUTO) 0.1 K/uL (0.0-0.4); EOSINOPHILS % (AUTO) 2.3 % (0.0-4.0); HEMATOCRIT 25.5 % (36-54); HEMOGLOBIN 8.1 g/dL (14.0-18.0); LYMPHOCYTES # (AUTO) 0.7 K/uL (1.0-5.5); MEAN CORPUSCULAR HEMOGLOBIN 28 pg (27-31); MEAN CORPUSCULAR HGB CONC 32 % (32-36); MEAN CORPUSCULAR VOLUME 89 fL (79.0-98.0); MONOCYTES # (AUTO) 0.8 K/uL (0.0-1.0); MONOCYTES % (AUTO) 14.9 % (1.7-9.3); NEUTROPHILS # (AUTO) 3.7 K/uL (1.8-7.7); NEUTROPHILS % (AUTO) 69.4 % (40.0-70.0); PLATELET COUNT (AUTO) 134 K/uL (130-430); RED BLOOD CELL COUNT(AUTO) 2.87 MIL/uL (4.2-6.2); RED CELL DISTRIBUTION WIDTH 12.7 % (9.0-15.0); WHITE BLOOD COUNT (AUTO) 5.3 K/uL (4.8-10.8)
[2018-11-01 11:42] LABS: CALCIUM 7.9 mg/dL (8.4-11.0); POTASSIUM 5.2 mmol/L (3.5-5.1)
[2018-11-01 11:59] LABS: CREATININE 8.37 mg/dL (0.55-1.30)
[2018-11-01] MEDS: SOD FERRIC GLUC COMPLEX/SUC 125 MG in NS 100 ML IV SCH (12:18)
[2018-11-01 15:50] VITALS: BP_SYST 135
[2018-11-01] MEDS: THORAZINE (chlorproMAZINE) 25 MG TAB PO PRN (16:44)
[2018-11-01] MEDS: EPOETIN ALFA 4,000 UNITS/ML VIAL SUBCUT SCH (17:41)
[2018-11-01 20:21] VITALS: BP_SYST 144
[2018-11-01] MEDS ORDERED: HEPARIN SODIUM,PORCINE 5000 UNITS/ML VIAL ONE (21:47)
[2018-11-01] MEDS: INSULIN ASPART 100 UNITS/ML, 10 ML VIAL (NovoLOG) SUBCUT PRN (22:41)
[2018-11-02 00:52] VITALS: BP_SYST 143
[2018-11-02] MEDS: HYDROcodone/ACETAMIN 10-325 MG TAB PO PRN ×3 (06:16→19:35)
[2018-11-02 08:00] VITALS: BP_SYST 120
[2018-11-02] MEDS: hydrALAZINE HCL 25 MG TABLET PO SCH ×2 (09:00→21:00)
[2018-11-02] MEDS: METOPROLOL TARTRATE 50 MG TABLET PO SCH ×2 (09:00→21:00)
[2018-11-02] MEDS: cloNIDine HCL 0.2 MG TABLET PO SCH ×2 (09:00→21:00)
[2018-11-02] MEDS: amLODIPine BESYLATE 10 MG TABLET PO SCH (09:00)
[2018-11-02] MEDS: ENALAPRIL MALEATE 10 MG TABLET (VASOTEC) PO SCH ×2 (09:00→21:00)
[2018-11-02] MEDS: ceFAZolin SODIUM 1 GM in D5W 50 ML IV SCH ×2 (09:34→21:21)
[2018-11-02] MEDS: ASPIRIN 81 MG TABLET(ECOTRIN) PO SCH (09:35)
[2018-11-02] MEDS: FAMOTIDINE 20 MG TABLET PO SCH (09:35)
[2018-11-02] MEDS: ATORVASTATIN 20 MG TABLET PO SCH (09:35)
[2018-11-02] MEDS: THORAZINE (chlorproMAZINE) 25 MG TAB PO PRN ×2 (09:45→19:35)
[2018-11-02] MEDS: SOD FERRIC GLUC COMPLEX/SUC 125 MG in NS 100 ML IV SCH (11:31)
[2018-11-02] MEDS: INSULIN ASPART 100 UNITS/ML, 10 ML VIAL (NovoLOG) SUBCUT PRN ×2 (11:36→21:32)
[2018-11-02 12:44] VITALS: BP_SYST 140
[2018-11-02 16:26] VITALS: BP_SYST 120
[2018-11-02 20:00] VITALS: BP_SYST 140
[2018-11-02 23:39] VITALS: BP_SYST 127
[2018-11-03] MEDS: THORAZINE (chlorproMAZINE) 25 MG TAB PO PRN ×2 (03:36→15:49)
[2018-11-03] MEDS: HYDROcodone/ACETAMIN 10-325 MG TAB PO PRN ×2 (03:37→15:43)
[2018-11-03 08:00] VITALS: BP_SYST 115
[2018-11-03] MEDS: ceFAZolin SODIUM 1 GM in D5W 50 ML IV SCH ×2 (09:41→20:33)
[2018-11-03] MEDS: ATORVASTATIN 20 MG TABLET PO SCH (09:42)
[2018-11-03] MEDS: ENALAPRIL MALEATE 10 MG TABLET (VASOTEC) PO SCH ×2 (09:42→21:00)
[2018-11-03] MEDS: cloNIDine HCL 0.2 MG TABLET PO SCH ×2 (09:43→21:00)
[2018-11-03] MEDS: METOPROLOL TARTRATE 50 MG TABLET PO SCH ×2 (09:43→22:06)
[2018-11-03] MEDS: amLODIPine BESYLATE 10 MG TABLET PO SCH (09:43)
[2018-11-03] MEDS: hydrALAZINE HCL 25 MG TABLET PO SCH ×2 (09:44→22:06)
[2018-11-03] MEDS: ASPIRIN 81 MG TABLET(ECOTRIN) PO SCH (09:44)
[2018-11-03] MEDS: FAMOTIDINE 20 MG TABLET PO SCH (09:45)
[2018-11-03] MEDS: SOD FERRIC GLUC COMPLEX/SUC 125 MG in NS 100 ML IV SCH (11:43)
[2018-11-03] MEDS: INSULIN ASPART 100 UNITS/ML, 10 ML VIAL (NovoLOG) SUBCUT PRN (11:46)
[2018-11-03 12:55] VITALS: BP_SYST 121
[2018-11-03 16:50] VITALS: BP_SYST 126
[2018-11-03] MEDS: EPOETIN ALFA 4,000 UNITS/ML VIAL SUBCUT SCH (18:16)
[2018-11-03 20:51] VITALS: BP_SYST 125
[2018-11-03] MEDS: HYDROcodone/ACETAMIN 5-325 MG TAB (NORCO/ VICODIN) PO PRN (22:05)
[2018-11-04 15:07] LABS: ANTI-SMOOTH MUSCLE AB 11 Units (0-19)
== END 2018-11-03 22:20 | disposition home health service (06) | DRG 721 ==
LOC: SED 09:44 → SMU 14:42
PROVIDERS: ADMIT Internal Medicine; ATTEND Internal Medicine
PROC: 5A1D70Z Performance of Urinary Filtration, Intermittent, Less than 6 Hours Per Day (ICD-10-PCS; principal; 2018-10-26)
PROC: 5A1D70Z Performance of Urinary Filtration, Intermittent, Less than 6 Hours Per Day (ICD-10-PCS; 2018-10-28)
PROC: 5A1D70Z Performance of Urinary Filtration, Intermittent, Less than 6 Hours Per Day (ICD-10-PCS; 2018-10-30)
PROC: 02PYX3Z Removal of Infusion Device from Great Vessel, External Approach (ICD-10-PCS; 2018-10-30)
PROC: 02HV33Z Insertion of Infusion Device into Superior Vena Cava, Percutaneous Approach (ICD-10-PCS; 2018-11-01)
PROC: B548ZZA Ultrasonography of Superior Vena Cava, Guidance (ICD-10-PCS; 2018-11-01)
PROC: 5A1D70Z Performance of Urinary Filtration, Intermittent, Less than 6 Hours Per Day (ICD-10-PCS; 2018-11-02)
DX: T80.211A Bloodstream infection due to central venous catheter, initial encounter (principal); A41.01 Sepsis due to Methicillin susceptible Staphylococcus aureus; I13.2 Hypertensive heart and chronic kidney disease with heart failure and with stage 5 chronic kidney disease, or end stage renal disease; N17.9 Acute kidney failure, unspecified; E11.40 Type 2 diabetes mellitus with diabetic neuropathy, unspecified; E86.0 Dehydration; E11.22 Type 2 diabetes mellitus with diabetic chronic kidney disease; N18.6 End stage renal disease; I50.9 Heart failure, unspecified; G89.29 Other chronic pain; M54.5 Low back pain; E11.65 Type 2 diabetes mellitus with hyperglycemia; J44.9 Chronic obstructive pulmonary disease, unspecified; K74.60 Unspecified cirrhosis of liver; E87.5 Hyperkalemia; M47.896 Other spondylosis, lumbar region; B18.2 Chronic viral hepatitis C; M54.2 Cervicalgia; D63.1 Anemia in chronic kidney disease; K52.9 Noninfective gastroenteritis and colitis, unspecified; E66.01 Morbid (severe) obesity due to excess calories; Z96.649 Presence of unspecified artificial hip joint; Y84.8 Other medical procedures as the cause of abnormal reaction of the patient, or of later complication, without mention of misadventure at the time of the procedure; Y92.89 Other specified places as the place of occurrence of the external cause; Z87.891 Personal history of nicotine dependence; Z99.2 Dependence on renal dialysis; Z89.022 Acquired absence of left finger(s); Z91.011 Allergy to milk products; Z91.048 Other nonmedicinal substance allergy status; Z79.82 Long term (current) use of aspirin; Z79.899 Other long term (current) drug therapy
CPT/HCPCS: 36415; 71045; 72040-TC; 72100-TC; 76937; 80048; 80053; 80076; 80202-TC; 81000-TC; 82105; 82390; 82728; 82962; 83036; 83516; 83540-TC; 83550-TC; 83605; 83690-TC; 85025; 85610-TC; 86038; 86256; 87040-TC; 87070-TC; 87081; 87186-TC; 90935; 90937; 93005; 96365; 97116-GP; 97530-GP; 99285; C1751; J0690; J0878; J0885; J1644; J1815; J1956; J2001; J2405; J2543; J2916; J3370; J7030; J7050; J7060; Q0161

== ENCOUNTER 2019-01-31 23:16 | Emergency (ER) | payer MEDICAID ==
[~2019-01-31] VITALS: Ht 167.6 cm; Wt 47.6 kg
[~2019-01-31 23:16] MED LIST changes: +ASPI-1153 PO; +CALC667T5 PO; +CHOL500037 PO; +HYDR-4038 PO; +LIP40 PO; +NOR10 PO
[2019-01-31 23:31] VITALS: BP_SYST 176
[2019-02-01 00:31] LABS: BASOPHILS # (AUTO) 0.1 K/uL (0.0-0.2); BASOPHILS % (AUTO) 1.2 % (0.0-2.0); EOSINOPHILS # (AUTO) 0.3 K/uL (0.0-0.4); EOSINOPHILS % (AUTO) 4.9 % (0.0-4.0); HEMATOCRIT 33.1 % (36-54); HEMOGLOBIN 11.2 g/dL (14.0-18.0); LYMPHOCYTES # (AUTO) 1.2 K/uL (1.0-5.5); LYMPHOCYTES % (AUTO) 20.8 % (20.5-51.5); MEAN CORPUSCULAR HEMOGLOBIN 30 pg (27-31); MEAN CORPUSCULAR HGB CONC 34 % (32-36); MEAN CORPUSCULAR VOLUME 90 fL (79.0-98.0); MONOCYTES # (AUTO) 0.4 K/uL (0.0-1.0); MONOCYTES % (AUTO) 7.7 % (1.7-9.3); NEUTROPHILS # (AUTO) 3.7 K/uL (1.8-7.7); NEUTROPHILS % (AUTO) 65.4 % (40.0-70.0); PLATELET COUNT (AUTO) 153 K/uL (130-430); RED CELL DISTRIBUTION WIDTH 15.5 % (9.0-15.0); WHITE BLOOD COUNT (AUTO) 5.7 K/uL (4.8-10.8)
[2019-02-01 00:43] LABS: CALCIUM 8.6 mg/dL (8.4-11.0); POTASSIUM 4.8 mmol/L (3.5-5.1)
[2019-02-01 00:45] LABS: CREATININE 9.39 mg/dL (0.55-1.30); PROTHROMBIN TIME 10.3 SECS (9.5-12.5)
== END 2019-02-01 01:30 | disposition home or self-care (01) ==
LOC: SED 23:16
DX: T82.838A Hemorrhage due to vascular prosthetic devices, implants and grafts, initial encounter (principal); D64.9 Anemia, unspecified; I12.0 Hypertensive chronic kidney disease with stage 5 chronic kidney disease or end stage renal disease; E11.22 Type 2 diabetes mellitus with diabetic chronic kidney disease; N18.6 End stage renal disease; J45.909 Unspecified asthma, uncomplicated; Z86.79 Personal history of other diseases of the circulatory system; Z86.19 Personal history of other infectious and parasitic diseases; Z91.011 Allergy to milk products; Z79.82 Long term (current) use of aspirin; Z79.899 Other long term (current) drug therapy; Y92.89 Other specified places as the place of occurrence of the external cause
CPT/HCPCS: 36415; 71045; 80048; 85025; 85610-TC; 99284

== ENCOUNTER 2020-06-03 13:29 | Emergency (ER) | payer MEDICAID, SELFPAY ==
[~2020-06-03] VITALS: Ht 167.6 cm; Wt 77.1 kg
[~2020-06-03 13:29] MED LIST changes: -ALBMDI INH; -ASPI-1153 PO; -CALC667T5 PO; -CHOL500037 PO; -HYDR-4038 PO; +HYDR-4039 PO; -LIP40 PO; +NIFE30TA84 PO; -NOR10 PO
--- NOTE | 2020-06-03 13:40 | NUR ---
Patient to ER bed 03 to gown for evaluation. Side rails up.
--- NOTE | 2020-06-03 13:41 | NUR ---
Pt brought by self, A&Ox4, pt presents to ER with bleeding on R upper chest ,pt states a stent was placed this morning and heparin administered, pressure dressing applied to the site as indicated per Dr Lane , pt afebrile, skin pink and warm, cap refill <3, VSS.
--- NOTE | 2020-06-03 13:42 | NUR ---
Dr Lane evaluating patient at bedside
[2020-06-03 13:44] VITALS: BP_SYST 161
--- NOTE | 2020-06-03 14:47 | NUR ---
Pt in [facility] with side rails up. Pressure dressing applied to right subclavian area bleeding wound.
[2020-06-03 14:59] LABS: BASOPHILS # (AUTO) 0.1 K/uL (0.0-0.2); BASOPHILS % (AUTO) 1.2 % (0.0-2.0); EOSINOPHILS # (AUTO) 0.4 K/uL (0.0-0.4); EOSINOPHILS % (AUTO) 5.8 % (0.0-4.0); HEMOGLOBIN 9.5 g/dL (14.0-18.0); LYMPHOCYTES # (AUTO) 1.5 K/uL (1.0-5.5); LYMPHOCYTES % (AUTO) 21.6 % (20.5-51.5); MEAN CORPUSCULAR HEMOGLOBIN 34 pg (27-31); MEAN CORPUSCULAR HGB CONC 34 % (32-36); MEAN CORPUSCULAR VOLUME 98 fL (79.0-98.0); MONOCYTES # (AUTO) 0.4 K/uL (0.0-1.0); MONOCYTES % (AUTO) 5.3 % (1.7-9.3); NEUTROPHILS # (AUTO) 4.5 K/uL (1.8-7.7); NEUTROPHILS % (AUTO) 66.1 % (40.0-70.0); PLATELET COUNT (AUTO) 124 K/uL (130-430); RED BLOOD CELL COUNT(AUTO) 2.85 MIL/uL (4.2-6.2); RED CELL DISTRIBUTION WIDTH 14.5 % (9.0-15.0); WHITE BLOOD COUNT (AUTO) 6.8 K/uL (4.8-10.8)
[2020-06-03 15:31] LABS: ALBUMIN 3.9 g/dL (3.4-4.8); TOTAL BILIRUBIN 0.4 mg/dL (0.0-1.0)
[2020-06-03 15:45] LABS: PROTHROMBIN TIME 10.4 SECS (9.5-12.5)
[2020-06-03 15:49] LABS: CREATININE 15.53 mg/dL (0.55-1.30)
[2020-06-03 15:50] LABS: CALCIUM 6.7 mg/dL (8.4-11.0); POTASSIUM 5.8 mmol/L (3.5-5.1)
[2020-06-03] MEDS ORDERED: LIDOCAINE/EPI 1% 1:100000 20 ML VIAL INJ ONE ×2 (16:00→16:14)
--- NOTE | 2020-06-03 16:18 | NUR ---
pt alert and oriented. Provider and pt aware of abnormal lab results. No distress noted.
[2020-06-03 16:23] VITALS: BP_SYST 163
== END 2020-06-03 16:23 | disposition home or self-care (01) ==
LOC: SED 13:29
DX: S21.111A Laceration without foreign body of right front wall of thorax without penetration into thoracic cavity, initial encounter (principal); I10 Essential (primary) hypertension; E11.9 Type 2 diabetes mellitus without complications; J45.909 Unspecified asthma, uncomplicated; Z86.73 Personal history of transient ischemic attack (TIA), and cerebral infarction without residual deficits; Z91.011 Allergy to milk products; Z86.19 Personal history of other infectious and parasitic diseases; X58.XXXA Exposure to other specified factors, initial encounter; Y93.89 Activity, other specified; Y92.89 Other specified places as the place of occurrence of the external cause; Y99.8 Other external cause status
CPT/HCPCS: 36415; 80053; 85025; 85610-TC; 85730-TC; 99283

== ENCOUNTER 2020-09-03 19:25 | Inpatient (IN) | payer MEDICAID, SELFPAY ==
[~2020-09-03] VITALS: Ht 165.1 cm; Wt 78.1 kg
[~2020-09-03 19:25] MED LIST changes: -ENAL20TA PO; +ENAL20TA18 PO
[2020-09-03] MEDS ORDERED: cloNIDine HCL 0.1 MG TABLET PO ONE (20:15)
[2020-09-03 20:26] VITALS: BP_SYST 203
[2020-09-03 21:12] LABS: BASOPHILS # (AUTO) 0.1 K/uL (0.0-0.2); BASOPHILS % (AUTO) 1.9 % (0.0-2.0); EOSINOPHILS # (AUTO) 0.1 K/uL (0.0-0.4); HEMATOCRIT 33.7 % (36-54); HEMOGLOBIN 11.3 g/dL (14.0-18.0); LYMPHOCYTES # (AUTO) 0.8 K/uL (1.0-5.5); LYMPHOCYTES % (AUTO) 12.7 % (20.5-51.5); MEAN CORPUSCULAR HEMOGLOBIN 30 pg (27-31); MEAN CORPUSCULAR HGB CONC 33 % (32-36); MEAN CORPUSCULAR VOLUME 91 fL (79.0-98.0); MONOCYTES # (AUTO) 0.6 K/uL (0.0-1.0); MONOCYTES % (AUTO) 9.6 % (1.7-9.3); NEUTROPHILS # (AUTO) 4.6 K/uL (1.8-7.7); NEUTROPHILS % (AUTO) 73.8 % (40.0-70.0); PLATELET COUNT (AUTO) 118 K/uL (130-430); RED BLOOD CELL COUNT(AUTO) 3.72 MIL/uL (4.2-6.2); RED CELL DISTRIBUTION WIDTH 16.3 % (9.0-15.0); WHITE BLOOD COUNT (AUTO) 6.2 K/uL (4.8-10.8)
[2020-09-03] MEDS ORDERED: cloNIDine HCL 0.1 MG TABLET ONE (21:14)
[2020-09-03 21:22] LABS: TOTAL BILIRUBIN 0.4 mg/dL (0.0-1.0)
[2020-09-03 21:30] LABS: POTASSIUM 6.2 mmol/L (3.5-5.1)
[2020-09-03 21:32] LABS: CALCIUM 5.5 mg/dL (8.4-11.0); CREATININE 15.39 mg/dL (0.55-1.30)
[2020-09-03] MEDS ORDERED: SODIUM ZIRCONIUM CYCLOSILICATE 10 GM POWD.PACK PO ONE ×2 (21:45)
[2020-09-03] MEDS ORDERED: DEXTROSE 50% JECT 50 ML DISP.SYRIN IVP ONE (22:15)
[2020-09-03] MEDS ORDERED: CALCIUM CHLORIDE 1 GM/10ML VIAL (13.6 mEq Ca++/VIAL) IV ONE (22:15)
[2020-09-03] MEDS ORDERED: INSULIN REGULAR, HUMAN 10 UNITS/0.1 ML INJ IVP ONE (22:15)
[2020-09-04] MEDS ORDERED: HYDROcodone/ACETAMIN 5-325 MG TAB (NORCO/ VICODIN) PO PRN (00:45)
[2020-09-04] MEDS ORDERED: ONDANSETRON HCL 4 MG/2 ML VIAL IVP PRN (00:45)
[2020-09-04] MEDS ORDERED: LORazepam 2 MG/ML VIAL IVP PRN (00:45)
[2020-09-04] MEDS ORDERED: ACETAMINOPHEN 325 MG TABLET PO PRN (00:45)
[2020-09-04] MEDS ORDERED: HYDROcodone/ACETAMIN 10-325 MG TAB PO PRN (00:45)
[2020-09-04] MEDS ORDERED: NALOXONE HCL 0.4 MG/ML AMP (NARCAN) IVP PRN ×2 (00:45)
[2020-09-04] MEDS: NORMAL SALINE 5 ML DISP.SYRIN IVF SCH ×3 (06:00→23:04)
[2020-09-04] MEDS ORDERED: NORMAL SALINE 5 ML DISP.SYRIN IVF SCH (06:00)
[2020-09-04] MEDS ORDERED: cloNIDine HCL 0.2 MG TABLET PO SCH (09:00)
[2020-09-04] MEDS ORDERED: hydrALAZINE HCL 25 MG TABLET PO SCH (09:00)
[2020-09-04] MEDS: METOPROLOL TARTRATE 50 MG TABLET PO SCH ×2 (09:00→21:00)
[2020-09-04] MEDS: NIFEdipine 30 MG TAB.ER.24 PO SCH (09:53)
[2020-09-04] MEDS: lisinopriL 20 MG TABLET PO SCH ×2 (10:26→21:00)
[2020-09-04] MEDS ORDERED: HEPARIN SODIUM,PORCINE 5,000 UNITS/ML VIAL ONE (10:49)
[2020-09-04] MEDS ORDERED: cloNIDine HCL 0.2 MG TABLET PO ONE (11:30)
[2020-09-04] MEDS ORDERED: cloNIDine HCL 0.1 MG TABLET ONE (11:49)
[2020-09-04] MEDS: hydrALAZINE HCL 25 MG TABLET PO SCH ×2 (13:25→17:48)
[2020-09-04 13:29] VITALS: BP_SYST 159
[2020-09-04 15:16] VITALS: BP_SYST 130
[2020-09-04] MEDS: cloNIDine HCL 0.2 MG TABLET PO SCH ×2 (15:17→21:00)
[2020-09-04] MEDS: CALCIUM ACETATE 667 MG CAP PO SCH (17:48)
[2020-09-04 20:00] VITALS: BP_SYST 92
[2020-09-05] VITALS: BP_SYST 162
[2020-09-05] MEDS: hydrALAZINE HCL 25 MG TABLET PO SCH ×5 (06:23→21:00)
[2020-09-05] MEDS: NORMAL SALINE 5 ML DISP.SYRIN IVF SCH ×3 (06:23→22:41)
[2020-09-05 07:55] VITALS: BP_SYST 118
[2020-09-05] MEDS: CALCIUM ACETATE 667 MG CAP PO SCH ×3 (08:48→18:00)
[2020-09-05] MEDS: NEPHROVITE, (FOLIC ACID/VITAMIN B COMP W-C 1 TAB) PO SCH (08:49)
[2020-09-05] MEDS: cloNIDine HCL 0.2 MG TABLET PO SCH ×3 (08:57→21:00)
[2020-09-05] MEDS: METOPROLOL TARTRATE 50 MG TABLET PO SCH (09:00)
[2020-09-05] MEDS: lisinopriL 20 MG TABLET PO SCH (09:01)
[2020-09-05] MEDS: NIFEdipine 30 MG TAB.ER.24 PO SCH (09:02)
[2020-09-05 09:55] LABS: BASOPHILS % (AUTO) 0.7 % (0.0-2.0); EOSINOPHILS # (AUTO) 0.1 K/uL (0.0-0.4); HEMATOCRIT 33.6 % (36-54); HEMOGLOBIN 11.3 g/dL (14.0-18.0); LYMPHOCYTES # (AUTO) 1.1 K/uL (1.0-5.5); LYMPHOCYTES % (AUTO) 21.6 % (20.5-51.5); MEAN CORPUSCULAR HEMOGLOBIN 30 pg (27-31); MEAN CORPUSCULAR HGB CONC 34 % (32-36); MEAN CORPUSCULAR VOLUME 90 fL (79.0-98.0); MONOCYTES # (AUTO) 0.6 K/uL (0.0-1.0); MONOCYTES % (AUTO) 11.4 % (1.7-9.3); NEUTROPHILS # (AUTO) 3.4 K/uL (1.8-7.7); NEUTROPHILS % (AUTO) 64.3 % (40.0-70.0); PLATELET COUNT (AUTO) 176 K/uL (130-430); RED BLOOD CELL COUNT(AUTO) 3.74 MIL/uL (4.2-6.2); RED CELL DISTRIBUTION WIDTH 16.1 % (9.0-15.0); WHITE BLOOD COUNT (AUTO) 5.2 K/uL (4.8-10.8)
[2020-09-05] MEDS: ASCORBIC ACID 500 MG TABLET PO SCH (11:12)
[2020-09-05] MEDS: CHOLECALCIFEROL (VITAMIN D3) 5,000 UNIT TABLET PO SCH (11:12)
[2020-09-05] MEDS: ENOXAPARIN SODIUM 30 MG/0.3 ML SYRINGE SUBCUT SCH (11:13)
[2020-09-05 12:00] VITALS: BP_SYST 129
[2020-09-05 17:30] VITALS: BP_SYST 106
[2020-09-05 20:00] VITALS: BP_SYST 117
[2020-09-06 04:00] VITALS: BP_SYST 108
[2020-09-06] MEDS: NORMAL SALINE 5 ML DISP.SYRIN IVF SCH ×2 (06:15→13:46)
[2020-09-06 07:30] LABS: ERYTHROCYTE SEDIMENTATION RATE 29 MM/HR (0-15)
[2020-09-06 08:00] VITALS: BP_SYST 131
[2020-09-06] MEDS: NEPHROVITE, (FOLIC ACID/VITAMIN B COMP W-C 1 TAB) PO SCH (08:20)
[2020-09-06] MEDS: CHOLECALCIFEROL (VITAMIN D3) 5,000 UNIT TABLET PO SCH (08:20)
[2020-09-06] MEDS: ASCORBIC ACID 500 MG TABLET PO SCH (08:20)
[2020-09-06] MEDS: NIFEdipine 30 MG TAB.ER.24 PO SCH (08:24)
[2020-09-06] MEDS: ENOXAPARIN SODIUM 30 MG/0.3 ML SYRINGE SUBCUT SCH (08:24)
[2020-09-06] MEDS: CALCIUM ACETATE 667 MG CAP PO SCH ×2 (08:25→12:52)
[2020-09-06] MEDS: hydrALAZINE HCL 25 MG TABLET PO SCH (08:25)
[2020-09-06] MEDS: cloNIDine HCL 0.2 MG TABLET PO SCH (08:25)
[2020-09-06] MEDS ORDERED: HEPARIN SODIUM,PORCINE 5,000 UNITS/ML VIAL SUBCUT ONE (10:30)
[2020-09-06 11:05] LABS: POTASSIUM 5.1 mmol/L (3.5-5.1)
[2020-09-06 11:08] LABS: TOTAL BILIRUBIN 0.3 mg/dL (0.0-1.0)
[2020-09-06 11:09] LABS: ALBUMIN 3.9 g/dL (3.4-4.8); PHOSPHORUS 7.2 mg/dL (2.7-4.5)
[2020-09-06 11:12] LABS: CALCIUM 6.5 mg/dL (8.4-11.0); CREATININE 12.79 mg/dL (0.55-1.30)
[2020-09-06 12:20] VITALS: BP_SYST 124
[2020-09-06 16:14] LABS: BASOPHILS % (AUTO) 0.7 % (0.0-2.0); EOSINOPHILS # (AUTO) 0.1 K/uL (0.0-0.4); EOSINOPHILS % (AUTO) 0.8 % (0.0-4.0); HEMOGLOBIN 12.2 g/dL (14.0-18.0); LYMPHOCYTES # (AUTO) 0.8 K/uL (1.0-5.5); LYMPHOCYTES % (AUTO) 12.6 % (20.5-51.5); MEAN CORPUSCULAR HEMOGLOBIN 30 pg (27-31); MEAN CORPUSCULAR HGB CONC 32 % (32-36); MEAN CORPUSCULAR VOLUME 92 fL (79.0-98.0); MONOCYTES # (AUTO) 0.4 K/uL (0.0-1.0); MONOCYTES % (AUTO) 6.1 % (1.7-9.3); NEUTROPHILS # (AUTO) 5.2 K/uL (1.8-7.7); NEUTROPHILS % (AUTO) 79.8 % (40.0-70.0); PLATELET COUNT (AUTO) 223 K/uL (130-430); RED BLOOD CELL COUNT(AUTO) 4.12 MIL/uL (4.2-6.2); RED CELL DISTRIBUTION WIDTH 16.1 % (9.0-15.0); WHITE BLOOD COUNT (AUTO) 6.5 K/uL (4.8-10.8)
[2020-09-06 16:27] LABS: C-REACTIVE PROTEIN QUANT 1.6 mg/dL (0-0.5)
[2020-09-06 16:44] VITALS: BP_SYST 132
[2020-09-06 16:51] LABS: CALCIUM 7.7 mg/dL (8.4-11.0); PHOSPHORUS 5.2 mg/dL (2.7-4.5); POTASSIUM 4.5 mmol/L (3.5-5.1)
[2020-09-06 16:57] LABS: CREATININE 9.74 mg/dL (0.55-1.30)
[2020-09-06 17:27] LABS: ERYTHROCYTE SEDIMENTATION RATE 25 MM/HR (0-15)
[2020-09-06] MEDS ORDERED: NEPH PO (17:38)
[2020-09-06] MEDS ORDERED: ASC500 PO (17:38)
[2020-09-06] MEDS ORDERED: APIX2.5T PO (17:38)
[2020-09-06] MEDS ORDERED: CHOL500013 PO (17:38)
[2020-09-06] MEDS ORDERED: PHO667 PO (17:38)
[2020-09-06] MEDS ORDERED: Zinc Sulfate PO (17:38)
[2020-09-06 18:03] VITALS: BP_SYST 132
== END 2020-09-06 19:31 | disposition home or self-care (01) | DRG 137 ==
LOC: SED 19:25 → STU 23:54
PROVIDERS: ADMIT Preventive Medicine Preventive Medicine/Occupational Environmental Medicine; ATTEND Preventive Medicine Preventive Medicine/Occupational Environmental Medicine
PROC: 5A1D70Z Performance of Urinary Filtration, Intermittent, Less than 6 Hours Per Day (ICD-10-PCS; principal; 2020-09-04)
PROC: 5A1D70Z Performance of Urinary Filtration, Intermittent, Less than 6 Hours Per Day (ICD-10-PCS; 2020-09-06)
DX: U07.1 COVID-19 (principal); I25.10 Atherosclerotic heart disease of native coronary artery without angina pectoris; E87.5 Hyperkalemia; J45.909 Unspecified asthma, uncomplicated; B19.20 Unspecified viral hepatitis C without hepatic coma; E11.21 Type 2 diabetes mellitus with diabetic nephropathy; D63.1 Anemia in chronic kidney disease; D69.6 Thrombocytopenia, unspecified; T82.590A Other mechanical complication of surgically created arteriovenous fistula, initial encounter; E87.1 Hypo-osmolality and hyponatremia; E87.6 Hypokalemia; E83.52 Hypercalcemia; E83.51 Hypocalcemia; E11.65 Type 2 diabetes mellitus with hyperglycemia; D72.810 Lymphocytopenia; E83.39 Other disorders of phosphorus metabolism; I12.0 Hypertensive chronic kidney disease with stage 5 chronic kidney disease or end stage renal disease; E11.22 Type 2 diabetes mellitus with diabetic chronic kidney disease; N18.6 End stage renal disease; Y83.8 Other surgical procedures as the cause of abnormal reaction of the patient, or of later complication, without mention of misadventure at the time of the procedure; J12.89 Other viral pneumonia; Z88.8 Allergy status to other drugs, medicaments and biological substances; Z91.09 Other allergy status, other than to drugs and biological substances; Z56.0 Unemployment, unspecified; Z99.2 Dependence on renal dialysis; Z78.9 Other specified health status; Y92.89 Other specified places as the place of occurrence of the external cause
CPT/HCPCS: 36415; 71045; 80048; 80053; 82550-TC; 82728; 82803-TC; 82962; 83735-TC; 83880; 84100-TC; 85025; 85379; 85651-TC; 86140; 87081; 93005; 99291; G0378; J1644; J1650; U0003

== ENCOUNTER 2021-10-10 11:52 | Emergency (ER) | payer MEDICAID, SELFPAY ==
[~2021-10-10] VITALS: Ht 167.6 cm; Wt 77.1 kg
[~2021-10-10 11:52] MED LIST changes: +APIX2.5T PO; +ASC500 PO; +CHOL500013 PO; +NEPH PO; +PHO667 PO; +Zinc Sulfate PO
--- NOTE | 2021-10-10 12:00 | NUR ---
Pt brought by self, A&Ox4, pt presents to ER with rectal pain/ bright red bleeding after having a bowell movement, skin pink and warm, cap refill <3, VSS, respirations even and unlabored.
[2021-10-10 12:16] VITALS: BP_SYST 190
== END 2021-10-10 14:07 | disposition left against medical advice (07) ==
LOC: SED 11:52
DX: K62.89 Other specified diseases of anus and rectum (principal); Z53.21 Procedure and treatment not carried out due to patient leaving prior to being seen by health care provider

== ENCOUNTER 2021-10-12 11:49 | Emergency (ER) | payer MEDICAID, SELFPAY ==
[~2021-10-12] VITALS: Ht 167.6 cm; Wt 77.1 kg
[2021-10-12 12:00] VITALS: BP_SYST 161
--- NOTE | 2021-10-12 12:00 | NUR ---
Patient triaged and placed in waiting room. VSS and patient appears in no acute distress at this time. Accompanied by SELF , awaiting available bed, and MD notified of need for MSE.
--- NOTE | 2021-10-12 14:30 | NUR ---
PT CALLED BY NO ANSWER
--- NOTE | 2021-10-12 15:20 | NUR ---
NO ANSWER CALLED BY .
[2021-10-12 16:00] VITALS: BP_SYST 161
== END 2021-10-12 16:00 | disposition left against medical advice (07) ==
LOC: SED 11:49
DX: R06.02 Shortness of breath (principal); Z53.21 Procedure and treatment not carried out due to patient leaving prior to being seen by health care provider